=== PATIENT | male | born 1940 | race Two or more races ===

== ENCOUNTER 2019-12-19 11:20 | Emergency (ER) | payer SELFPAY ==
[~2019-12-19] VITALS: Ht 180.3 cm; Wt 70.3 kg
[~2019-12-19 11:20] MED LIST: Atorvastatin Calcium PO; ENAL10TA12 PO; MET50T PO; TAM04C PO; WARF5TAB PO
[2019-12-19 11:47] VITALS: BP 133/79
== END 2019-12-19 11:56 | disposition home or self-care (01) ==
LOC: ER 11:20
DX: N40.0 Benign prostatic hyperplasia without lower urinary tract symptoms (principal); I10 Essential (primary) hypertension; E78.00 Pure hypercholesterolemia, unspecified; E78.5 Hyperlipidemia, unspecified; Z76.0 Encounter for issue of repeat prescription; Z90.49 Acquired absence of other specified parts of digestive tract; Z79.899 Other long term (current) drug therapy

== ENCOUNTER 2021-10-24 11:46 | Emergency (ER) | payer MEDICAID ==
[~2021-10-24] VITALS: Ht 180.3 cm; Wt 68.0 kg
[2021-10-24] MEDS ORDERED: TAM04C PO (12:58)
[2021-10-24 14:29] LABS: Urine Bacteria NONE SEEN /hpf (None Seen); Urine Blood Negative /uL (Negative); Urine Hyaline Cast FEW /lpf (0 - 2); Urine Mucus FEW (None Seen); Urine Specific Gravity 1.028 (1.001-1.035); Urine WBC 2 /hpf (0 - 3)
[2021-10-24 15:33] VITALS: BP 132/82
== END 2021-10-24 15:36 | disposition home or self-care (01) ==
LOC: ER 11:46
DX: N40.0 Benign prostatic hyperplasia without lower urinary tract symptoms (principal); Z76.0 Encounter for issue of repeat prescription; I10 Essential (primary) hypertension; E78.5 Hyperlipidemia, unspecified; Z90.49 Acquired absence of other specified parts of digestive tract; Z79.01 Long term (current) use of anticoagulants; Z79.899 Other long term (current) drug therapy
CPT/HCPCS: 81001

== ENCOUNTER 2022-05-17 10:10 | Emergency (ER) | payer MEDICAID ==
[~2022-05-17] VITALS: Ht 180.3 cm; Wt 69.0 kg
[2022-05-17 11:15] LABS: Basophils # (auto) 0 10 ^3/uL (0-0.2); Basophils % (auto) 0.6 % (0.0-2.0); Eosinophils # (auto) 0.1 10 ^3/uL (0-0.8); Eosinophils % (auto) 1.9 % (0.0-7.0); Hemoglobin 14.9 g/dL (13.5-17.5); Lymphocytes % (auto) 16.6 % (10.0-50.0); Mean Corpuscular Hemoglobin 30.6 pg (28.0-32.0); Mean Corpuscular Hgb Conc. 33.8 g/dL (32.0-36.0); Mean Corpuscular Volume 90.5 fL (80.0-100.0); Monocytes # (auto) 0.4 10 ^3/uL (0-1.3); Monocytes % (auto) 6.6 % (0.0-12.0); Neutrophils # (auto) 4.4 10 ^3/uL (1.6-8.6); Neutrophils % (auto) 74.3 % (37.0-80.0); Nucleated Red Blood Cells % 0.1 %; Red Blood Cells 4.85 10^6/uL (4.5-5.90); Red Cell Distribution Width 12.9 % (11.8-14.3); White Blood Cell 5.9 10^3/uL (4.4-10.8)
[2022-05-17 11:46] LABS: Albumin 3.5 g/dL (3.4-5.0); BUN/Creatinine Ratio 17.1
[2022-05-17 11:48] LABS: Bilirubin, Total 1.9 mg/dL (0.2-1.0); Total Protein 7.2 g/dL (6.4-8.2)
[2022-05-17 12:27] LABS: Urine Bacteria NONE SEEN /hpf (None Seen); Urine Blood Negative /uL (Negative); Urine Mucus FEW (None Seen); Urine Specific Gravity 1.022 (1.001-1.035); Urine WBC 1 /hpf (0 - 3)
[2022-05-17 22:01] VITALS: BP 144/69
== END 2022-05-18 | disposition admitted as inpatient to this hospital (09) ==
LOC: ER 10:10
DX: K40.90 Unilateral inguinal hernia, without obstruction or gangrene, not specified as recurrent (principal); E78.5 Hyperlipidemia, unspecified; I10 Essential (primary) hypertension; Z79.899 Other long term (current) drug therapy; Z90.49 Acquired absence of other specified parts of digestive tract; Z20.822 Contact with and (suspected) exposure to COVID-19
CPT/HCPCS: 36415; 74176; 80053; 81001; 85025; 87426; 93005

== ENCOUNTER 2023-07-08 13:41 | Emergency (ER) | payer MEDICAID ==
[~2023-07-08] VITALS: Ht 162.6 cm; Wt 66.0 kg
[~2023-07-08 13:41] MED LIST changes: -ENAL10TA12 PO; +ENAL1TAB46 PO; -TAM04C PO; +TAMS-35 PO
[2023-07-08 13:56] VITALS: BP 179/90; PULSE 73; RESP 16; O2SAT 97
[2023-07-08] MEDS ORDERED: KETOROLAC TROMETH 60MG/2ML VIAL IM ONE (15:15)
[2023-07-08 15:32] LABS: Urine Bacteria NONE SEEN /hpf (None Seen); Urine Blood Negative /uL (Negative); Urine Clarity Clear (Clear); Urine Color Yellow (Yellow); Urine Hyaline Cast MOD /lpf (0 - 2); Urine Mucus FEW (None Seen); Urine Protein, UAD TRACE (Negative); Urine Specific Gravity 1.021 (1.001-1.035); Urine Urobilinogen Normal (Negative); Urine WBC 1 /hpf (0 - 3)
[2023-07-08 15:36] LABS: Basophils # (auto) 0.1 10 ^3/uL (0-0.2); Basophils % (auto) 1.1 % (0.0-2.0); Eosinophils # (auto) 0.1 10 ^3/uL (0-0.8); Hematocrit 44.2 % (41.0-53.0); Hemoglobin 14.8 g/dL (13.5-17.5); Lymphocytes # (auto) 1.2 10 ^3/uL (0.4-5.4); Lymphocytes % (auto) 18.1 % (10.0-50.0); Mean Corpuscular Hemoglobin 30.8 pg (28.0-32.0); Mean Corpuscular Hgb Conc. 33.5 g/dL (32.0-36.0); Mean Corpuscular Volume 91.8 fL (80.0-100.0); Monocytes # (auto) 0.4 10 ^3/uL (0-1.3); Monocytes % (auto) 5.8 % (0.0-12.0); Neutrophils # (auto) 5.1 10 ^3/uL (1.6-8.6); Nucleated Red Blood Cells % 0.2 %; Red Blood Cells 4.82 10^6/uL (4.5-5.90); Red Cell Distribution Width 12.6 % (11.8-14.3); White Blood Cell 6.9 10^3/uL (4.4-10.8)
[2023-07-08 15:55] LABS: Alanine Aminotransferase 29 U/L (7-40); Albumin 4.5 g/dL (3.2-4.8); Alkaline Phosphatase 91 U/L (46-116); Anion Gap 7 (5-15); Aspartate Aminotransferase 20 U/L (13-40); BUN/Creatinine Ratio 19.8 (10.0-20.0); Blood Urea Nitrogen 17 mg/dL (9-23); Calcium 9.5 mg/dL (8.7-10.4); Carbon Dioxide 28 mmol/L (20-30); Chloride 107 mmol/L (98-107); Glucose 95 mg/dL (74-106); Lipase 25 U/L (12-53); Potassium 4.5 mmol/L (3.5-5.1); Sodium 142 mmol/L (136-145)
[2023-07-08 15:56] LABS: Bilirubin, Total 1.4 mg/dL (0.2-1.0); Total Protein 7.1 g/dL (5.7-8.2)
[2023-07-08] MEDS ORDERED: TAMS-35 PO (17:37)
[2023-07-08] MEDS ORDERED: ACE3T PO (17:37)
== END 2023-07-08 18:47 | disposition left against medical advice (07) ==
LOC: ER 13:41
DX: M54.16 Radiculopathy, lumbar region (principal); K76.89 Other specified diseases of liver; K59.00 Constipation, unspecified; K40.20 Bilateral inguinal hernia, without obstruction or gangrene, not specified as recurrent; N40.0 Benign prostatic hyperplasia without lower urinary tract symptoms
CPT/HCPCS: 36415; 74176; 80053; 81001; 83690; 85025; J1885

== ENCOUNTER 2025-06-13 18:28 | Emergency (ER) | payer SELFPAY ==
[~2025-06-13] VITALS: Ht 177.8 cm; Wt 75.0 kg
[~2025-06-13 18:28] MED LIST changes: +ACE3T PO
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
[2025-06-13 19:31] LABS: Hematocrit 41.5 % (41.0-53.0); Hemoglobin 14.0 g/dL (13.5-17.5); Mean Corpuscular Hemoglobin 30.6 pg (28.0-32.0); Mean Corpuscular Volume 90.5 fL (80.0-100.0); Nucleated Red Blood Cells % 0.1 %
[2025-06-13 19:37] LABS: Chloride 106 mmol/L (98-107); Potassium 4.2 mmol/L (3.5-5.1)
[2025-06-13 19:38] LABS: Anion Gap 10 (5-15); Calcium 9.5 mg/dL (8.7-10.4); Carbon Dioxide 29 mmol/L (20-31)
[2025-06-13 19:43] LABS: BUN/Creatinine Ratio 20.7 (10.0-20.0); Blood Urea Nitrogen 19 mg/dL (9-23); Glucose 100 mg/dL (74-106)
--- NOTE | 2025-06-13 19:44 | DVH ---
EXAM: CT CT AB PEL WO CON-NO ORAL OR IV INDICATION: Flank pain TECHNIQUE: Volumetric multidetector CT images of the abdomen and pelvis were obtained without contrast. All CT scans at this facility use dose modulation, iterative reconstruction, and/or weight based dosing when appropriate to reduce radiation dose to as low as reasonably achievable. COMPARISON: CT CT AB PEL WO CON-NO ORAL OR IV on DOS: 07/08/23 FINDINGS: [LOWER CHEST]: The partially visualized lung bases are clear without a pleural effusion. Coronary artery calcifications. The cardiac size is normal Trace pericardial fluid. [LIVER]: Dominant macrolobulated cysts in the left hepatic lobe measuring up to 3.9 cm, increased from prior examination in 2023. Additional smaller subcentimeter hypoattenuating lesions in the right hepatic lobe. Given the interval increase in size, consider further evaluation with nonemergent MRI of the liver with and without contrast. [GALLBLADDER AND BILIARY TREE]: Gallbladder is surgically absent. No cholelithiasis. [SPLEEN]: Unremarkable. [PANCREAS]: Unremarkable. [ADRENAL GLANDS]: Unremarkable [KIDNEYS]: No hydronephrosis. No nephroureterolithiasis. No suspicious focal lesion. [BLADDER]: Unremarkable for the degree distention. [REPRODUCTIVE ORGANS]: Moderate to severe prostatomegaly with possible evidence of prior TURP. [BOWEL/MESENTERY]: Trace possible distal esophageal wall thickening. Stomach is decompressed. No CT evidence of bowel obstruction. [ASCITES]: Absent [LYMPHADENOPATHY]: No pathologically enlarged lymph nodes by CT size criteria. Areas of presumed calcified small bowel mesenteric root lymph nodes [VASCULATURE]: Significant tortuosity of the abdominal aorta likely compatible with underlying chronic hypertension. Vascular calcifications. No aneurysmal dilatation. [ABDOMINAL WALL]: Small fat containing right inguinal hernia. Radiopaque densities causing streak artifact in the left upper quadrant. [MUSCULOSKELETAL]: Up to 50 percent central height loss of the L4, unchanged from prior examination. Unchanged minimal 10 percent areas of height loss of the L3 and L2, unchanged from prior examination. No acute fracture or aggressive focal osseous lesion. Multifocal degenerative change of the visualized spine. IMPRESSION: 1. No hydronephrosis or nephroureterolithiasis. 2. Interval increase in size of the dominant left hepatic lobe hypoattenuating lesion /cyst. Consider nonemergent measuring MRI of the liver with and without contrast. 3. Correlate for esophagitis. 4. Prostatomegaly. 5. Mild stool burden.
[2025-06-13 19:49] LABS: Sodium 145 mmol/L (136-145)
[2025-06-13 20:07] LABS: Alanine Aminotransferase 27.0 U/L (7-40); Alkaline Phosphatase 94.0 U/L (46-116)
[2025-06-13 20:08] LABS: Bilirubin, Total 1.4 mg/dL (0.2-1.0)
[2025-06-13] MEDS: HYDROcodone-ACET 5/325MG TAB PO ONE (21:08)
[2025-06-13 21:13] VITALS: BP 188/99; PULSE 66; RESP 18; TEMP 98.5; O2SAT 97
== END 2025-06-13 21:33 | disposition home or self-care (01) ==
LOC: EDBD 18:28 → ER 18:28
DX: K76.89 Other specified diseases of liver (principal); I10 Essential (primary) hypertension; N40.0 Benign prostatic hyperplasia without lower urinary tract symptoms; Z79.899 Other long term (current) drug therapy; Z90.49 Acquired absence of other specified parts of digestive tract
CPT/HCPCS: 36415; 74176; 80048; 82247; 84075; 84450; 84460; 85025